=== PATIENT | male | born 1960 | race African-American/Black ===

== ENCOUNTER 2017-08-18 23:48 | Inpatient (IN) ==
[2017-08-19 00:50] LABS: Basophils % 0.3 %; Eosinophils % 0.1 %; Immature Granulocytes % 0.3 % (0-4); Lymphocytes # 0.7 K/mcL (0.6-4.6); Lymphocytes % 8.9 %; Mean Corpuscular HGB Conc 33.3 g/dL (31.6-35.5); Mean Corpuscular Hemoglobin 30.1 pg (28.0-33.3); Mean Corpuscular Volume 90.4 fL (83.0-100.0); Mean Platelet Volume 10.1 fL (9.4-12.4); Monocytes # 0.8 K/mcL (0.0-1.3); Neutrophils # 6.1 K/mcL (1.6-8.9); Platelet Count 245 K/mcL (140-400); Red Blood Count 4.98 M/mcL (4.19-5.50); Red Cell Distribution Width 14.6 % (11.5-14.5); Segmented Neutrophils % 79.4 %
[2017-08-19 00:56] LABS: INR 1.2; Prothrombin Time 12.6 Seconds (9.4-12.1)
[2017-08-19 00:58] LABS: Activated Partial Thrombo Time 35.9 Seconds (26.0-36.0)
[2017-08-19 01:04] LABS: BUN/Creatinine Ratio 12 (6-26); Blood Urea Nitrogen 14 mg/dL (8-26); Calcium 9.9 mg/dL (8.6-10.8); Carbon Dioxide 24 mEq/L (19-29); Chloride 99 mEq/L (98-109); Glucose 94 mg/dL (70-99); Osmolality,Calculated 280 (280-300); Potassium 3.6 mEq/L (3.5-4.5); Sodium 135 mEq/L (136-145); eGFR For African Americans > 60 (> 60); eGFR For Non-African Americans > 60 (> 60)
--- NOTE | 2017-08-19 01:17 | Emergency Department Note ---
Disposition Clinical Impression: Shortness of breath Sepsis Qualifiers: Sepsis type: sepsis due to unspecified organism Qualified Code(s): A41.9 - Sepsis, unspecified organism Fever Qualifiers: Fever type: unspecified Qualified Code(s): R50.9 - Fever, unspecified Disposition: Admitted As Inpatient Condition: Fair Time of Disposition: 04:08 SOB HPI - General Chief Complaint: ED Shortness of Breath/Dyspnea Stated Complaint: shortness of breath, cough Source: patient, EMS Mode of arrival: EMS Limitations: no limitations Nursing Notes Reviewed: Yes Vital Signs Reviewed: Yes - History of Present Illness 57-year-old male with history of lung cancer presents to the emergency department complaining of shortness of breath as well as a painful cough and chest pain. Patient states the pain is been going on for 2 or 3 days as well as a cough but is worsened today and this is why he came in. He says the chest pain is all throughout his chest worsened with takes big deep breaths or coughing. There is center chest and nonradiating. He says it is 6 out of 10. He last had chemotherapy in March and that lung nodule was currently in remission he just got told recently last week that he had a new nodule in his right upper lung is currently being followed by oncology. He has had a purulent cough. He has had no fevers. But this cough and chest pain has worsened. There are some sick contacts at his house. Patient otherwise having no complaints including nausea, vomiting, headache, blurry vision, back pain, neck pain, abdominal pain, pain or tingling in the arms or legs, pain with urination, change in bowel movements, generalized weakness. - Related Data Previous Rx's Medication Instructions Recorded Azithromycin [Azithromycin 6-Tab 250 mg PO DAILY 5 Days tab 02/23/16 Pack] Benzonatate [Zonatuss] 150 mg PO TID PRN #20 capsule 02/23/16 Fluticasone Propionate Nasal 2 spray NS DAILY 7 Days bottle 02/23/16 [Flonase] Allergies Allergy/AdvReac Type Severity Reaction Status Date / Time dextromethorphan Allergy Dizziness Verified 08/18/17 23:49 [From Dimetapp Cold-Congestion] Review of Systems: 10 point review of systems done and negative unless otherwise stated in history of present illness. All systems ED: reviewed and negative except as stated. Review of Systems: As Per HPI Past Medical History - Past Medical History Attestation: Yes The following information was validated with the patient. Medical history: Reports: cancer, hypertension Surgical history: Reports: no surgical history Psychiatric history: Reports: no psych history - Social History Smoking Status: Former smoker Smokeless Tobacco Status: No Alcohol use: Reports: none Drug use: Reports: none Physical Exam - General Limitations: no limitations General appearance: alert, in no apparent distress - Head Head exam: atraumatic, normocephalic, normal inspection - Eye Eye exam: Present: normal appearance, PERRL, EOMI - ENT ENT exam: normal exam, normal oropharynx, mucous membranes moist - Neck Neck exam: Present: normal inspection, full ROM, trachea midline - Chest Chest inspection: Present: normal inspection, symmetric chest wall rise - Respiratory Respiratory exam: Present: wheezes. Absent: respiratory distress - Expanded Respiratory Exam Location: rales: Left, Right, Upper, Lower - Cardiovascular Cardiovascular exam: Present: regular rate, normal rhythm, normal heart sounds - Abdominal Exam Abdominal exam: Present: soft, Non-Tender, normal bowel sounds. Absent: tenderness, distention, guarding, rebound, rigidity - Extremities Exam Extremities exam: Present: normal inspection, full ROM. Absent: tenderness, pedal edema - Back Exam Back exam: Present: normal inspection, full ROM. Absent: tenderness, CVA tenderness (R), CVA tenderness (L) - Neurological Exam Neurological exam: Present: alert, oriented X3 - Skin Skin exam: Present: warm, dry, intact, normal color Course Course Narrative: 57-year-old male presented to emergency department complaining of shortness of breath and cough. Patient does have history of lung cancer. We will get CTA of his chest for possible pulmonary embolism or other lung pathology including pneumonia. Patient with fever when he came here. Will also get basic labs including CBC, CMP, lactate, troponin and EKG, blood cultures, timed lactate.. Disposition pending results. Vital Signs Temperature 101.3 F H 08/18/17 23:51 Pulse Rate 111 08/18/17 23:51 Respiratory Rate 16 08/18/17 23:51 Blood Pressure 152/98 08/18/17 23:51 O2 Sat by Pulse Oximetry 92 08/18/17 23:51 Temperature 99.2 F 08/19/17 06:02 Pulse Rate 101 08/19/17 06:02 Respiratory Rate 16 08/19/17 06:02 Blood Pressure 160/97 08/19/17 06:02 O2 Sat by Pulse Oximetry 97 08/19/17 06:02 Oxygen Delivery Oxygen Delivery Nasal Cannula Shortness of Breath/Dyspnea - MDM Narrative Medical decision making narrative: D7-year-old male presenting to the emergency department complaining of shortness of breath as well as fever. Patient did have a fever upon arrival and was tachycardic. Did do an EKG which had no acute findings of tachycardia. Did do CT angios of his chest due to the history of lung cancer with worry for pulmonary embolus and there is no pulmonary lives with a did find a spot in his right upper lobe which is what he is currently being worked up for for possibly new lung cancer. Labs were all normal blood cultures are still pending urinalysis is still pending. Did start patient on Levaquin, Zosyn, vancomycin due to the history of immunosuppression as well as the lung cancer. Did also get flu sausage this is still pending at the same time. Did give patient a total of 8 mg of morphine for pain control this did help. Also gave him the 30 mL/kg of IV fluid bolus. He tolerated this well. Spoke with the hospitalist, Dr. Rothman who agreed to admit the patient to their service. Patient is now admitted to their service in stable condition. Chest CTA 08/19/17 00:16 IMPRESSION: No evidence of pulmonary embolus. Bullous emphysematous changes within the upper lobes bilaterally. Left adrenal mass. Pleural thickening within the right lung apex with adjacent erosions and cortical irregularity involving the right 3rd through 5th ribs. Combination of findings is concerning for malignancy/metastatic disease. D/ / Stefan Pierce MD / Stefan Pierce MD Interpreting Provider: Stefan Pierce MD - Medical Records Medical records reviewed: Yes I reviewed the patient's medical records. - Lab Data Lab results reviewed: Yes I reviewed the patient's lab results. Result diagrams: 08/19/17 00:38 08/19/17 00:38 Lab Results 08/19/17 08/19/17 08/19/17 Range/Units 00:38 00:38 00:38 WBC 7.6 (4.3-11.1) K/mcL RBC 4.98 (4.19-5.50) M/mcL Hgb 15.0 (12.9-16.9) g/dL Hct 45.0 (37.5-50.1) % MCV 90.4 (83.0-100.0) fL MCH 30.1 (28.0-33.3) pg MCHC 33.3 (31.6-35.5) g/dL RDW 14.6 H (11.5-14.5) % Plt Count 245 (140-400) K/mcL MPV 10.1 (9.4-12.4) fL Immature Gran % 0.3 (0-4) % Seg Neutrophils % 79.4 % Lymphocytes % 8.9 % Monocytes % 11.0 % Eosinophils % 0.1 % Basophils % 0.3 % Neutrophils # 6.1 (1.6-8.9) K/mcL Lymphocytes # 0.7 (0.6-4.6) K/mcL Monocytes # 0.8 (0.0-1.3) K/mcL Eosinophils # 0.0 (0.0-0.6) K/mcL Basophils # 0.0 (0.0-0.2) K/mcL PT (9.4-12.1) Seconds INR APTT (26.0-36.0) Seconds Sodium 135 L (136-145) mEq/L Potassium 3.6 (3.5-4.5) mEq/L Chloride 99 (98-109) mEq/L Carbon Dioxide 24 (19-29) mEq/L BUN 14 (8-26) mg/dL Creatinine 1.13 (0.72-1.25) mg/dL Est GFR ( Amer) > 60 (> 60) Est GFR (Non-Af Amer) > 60 (> 60) BUN/Creatinine Ratio 12 (6-26) Glucose 94 (70-99) mg/dL Calculated Osmolality 280 (280-300) Lactic Acid 1.2 (0.5-2.2) mmol/L Calcium 9.9 (8.6-10.8) mg/dL Troponin I (0-0.03) ng/mL B-Natriuretic Peptide (0-100) pg/mL Urine Color (Yellow) Urine Clarity (Clear) Urine pH (5.0-8.0) pH Units Ur Specific [place] (1.010-1.025) Urine Protein (Neg-Trace) mg/dL Urine Glucose (UA) (Normal) mg/dL Urine Ketones (Negative) mg/dL Urine Blood (Negative) Urine Nitrite (Negative) Urine Bilirubin (Negative) Urine Urobilinogen (Normal) mg/dL Ur Leukocyte Esterase (Negative) Urine Microscopic RBC (0-3) per hpf Urine Microscopic WBC (0-3) per hpf Ur Squamous Epith Cells (None-Few) per lpf Urine Bacteria (None-Few) per hpf Hyaline Casts (None-Few) per lpf Ur Culture Indicated? (NO) 08/19/17 08/19/17 08/19/17 Range/Units 00:38 00:38 00:38 WBC (4.3-11.1) K/mcL RBC (4.19-5.50) M/mcL Hgb (12.9-16.9) g/dL Hct (37.5-50.1) % MCV (83.0-100.0) fL MCH (28.0-33.3) pg MCHC (31.6-35.5) g/dL RDW (11.5-14.5) % Plt Count (140-400) K/mcL MPV (9.4-12.4) fL Immature Gran % (0-4) % Seg Neutrophils % % Lymphocytes % % Monocytes % % Eosinophils % % Basophils % % Neutrophils # (1.6-8.9) K/mcL Lymphocytes # (0.6-4.6) K/mcL Monocytes # (0.0-1.3) K/mcL Eosinophils # (0.0-0.6) K/mcL Basophils # (0.0-0.2) K/mcL PT 12.6 H (9.4-12.1) Seconds INR 1.2 APTT 35.9 (26.0-36.0) Seconds Sodium (136-145) mEq/L Potassium (3.5-4.5) mEq/L Chloride (98-109) mEq/L Carbon Dioxide (19-29) mEq/L BUN (8-26) mg/dL Creatinine (0.72-1.25) mg/dL Est GFR ( Amer) (> 60) Est GFR (Non-Af Amer) (> 60) BUN/Creatinine Ratio (6-26) Glucose (70-99) mg/dL Calculated Osmolality (280-300) Lactic Acid (0.5-2.2) mmol/L Calcium (8.6-10.8) mg/dL Troponin I 0.01 (0-0.03) ng/mL B-Natriuretic Peptide 77 (0-100) pg/mL Urine Color (Yellow) Urine Clarity (Clear) Urine pH (5.0-8.0) pH Units Ur Specific [place] (1.010-1.025) Urine Protein (Neg-Trace) mg/dL Urine Glucose (UA) (Normal) mg/dL Urine Ketones (Negative) mg/dL Urine Blood (Negative) Urine Nitrite (Negative) Urine Bilirubin (Negative) Urine Urobilinogen (Normal) mg/dL Ur Leukocyte Esterase (Negative) Urine Microscopic RBC (0-3) per hpf Urine Microscopic WBC (0-3) per hpf Ur Squamous Epith Cells (None-Few) per lpf Urine Bacteria (None-Few) per hpf Hyaline Casts (None-Few) per lpf Ur Culture Indicated? (NO) 08/19/17 Range/Units 03:55 WBC (4.3-11.1) K/mcL RBC (4.19-5.50) M/mcL Hgb (12.9-16.9) g/dL Hct (37.5-50.1) % MCV (83.0-100.0) fL MCH (28.0-33.3) pg MCHC (31.6-35.5) g/dL RDW (11.5-14.5) % Plt Count (140-400) K/mcL MPV (9.4-12.4) fL Immature Gran % (0-4) % Seg Neutrophils % % Lymphocytes % % Monocytes % % Eosinophils % % Basophils % % Neutrophils # (1.6-8.9) K/mcL Lymphocytes # (0.6-4.6) K/mcL Monocytes # (0.0-1.3) K/mcL Eosinophils # (0.0-0.6) K/mcL Basophils # (0.0-0.2) K/mcL PT (9.4-12.1) Seconds INR APTT (26.0-36.0) Seconds Sodium (136-145) mEq/L Potassium (3.5-4.5) mEq/L Chloride (98-109) mEq/L Carbon Dioxide (19-29) mEq/L BUN (8-26) mg/dL Creatinine (0.72-1.25) mg/dL Est GFR ( Amer) (> 60) Est GFR (Non-Af Amer) (> 60) BUN/Creatinine Ratio (6-26) Glucose (70-99) mg/dL Calculated Osmolality (280-300) Lactic Acid (0.5-2.2) mmol/L Calcium (8.6-10.8) mg/dL Troponin I (0-0.03) ng/mL B-Natriuretic Peptide (0-100) pg/mL Urine Color Yellow (Yellow) Urine Clarity Clear (Clear) Urine pH 6.0 (5.0-8.0) pH Units Ur Specific [place] > 1.030 H (1.010-1.025) Urine Protein 30 H (Neg-Trace) mg/dL Urine Glucose (UA) Normal (Normal) mg/dL Urine Ketones Negative (Negative) mg/dL Urine Blood Large H (Negative) Urine Nitrite Negative (Negative) Urine Bilirubin Negative (Negative) Urine Urobilinogen Normal (Normal) mg/dL Ur Leukocyte Esterase Negative (Negative) Urine Microscopic RBC 5-15 H (0-3) per hpf Urine Microscopic WBC 0-3 (0-3) per hpf Ur Squamous Epith Cells Moderate H (None-Few) per lpf Urine Bacteria None Seen (None-Few) per hpf Hyaline Casts None Seen (None-Few) per lpf Ur Culture Indicated? NO (NO) - Radiology Data Radiology results reviewed: Yes I reviewed the patient's radiology results. - EKG Data EKG attestation: Yes I reviewed and interpreted this EKG. EKG results narrative: EKG done at 2353 review myself and the attending shows sinus tachycardia at a rate of 113, OR interval 163, QRS 95, QTC 373 with a normal axis. There is no acute ST changes, no acute T-wave abnormalities, no signs of any heart strain or heart block, no signs of hypertrophy, no signs of WPW/Brugada syndrome. This is an unchanged EKG based on old one done 11/01/12. Attestation Statement - Attestation Attestation: I examined this patient and my medical decision-making was reviewed with the Resident Physician. I agree with the documented findings, disposition and treatment plan as described except to the extent set forth below. Possible worsening of lung CA. Dyspnea in the setting of lung CA. Will admit to hospital for further evaluation. No evidence of pulmonary embolus embolism at this time.
[2017-08-19] MEDS ORDERED: *HR* Morphine 2 MG/ML SYRINGE IVP ONE ×2 (01:23→04:03)
[2017-08-19] MEDS ORDERED: 0.9 % Sodium Chloride 1,000 ML IVC ONE ×2 (02:55)
[2017-08-19] MEDS ORDERED: Levofloxacin 750 MG/150 ML 750 MG/150 ML BAG IVPB ONE ×2 (03:25→07:00)
[2017-08-19] MEDS ORDERED: Piperacillin/Tazobactam 3.375 GM in Water for inj. (sterile) 20 ML IVP ONE (03:25)
[2017-08-19] MEDS ORDERED: Vancomycin 1,000 MG in D5% in Water 250 ML IVPB ONE ×2 (03:25→07:00)
[2017-08-19 04:16] LABS: Bilirubin,Urine Negative (Negative); Blood,Urine Large (Negative); Clarity,Urine Clear (Clear); Color,Urine Yellow (Yellow); Glucose,Urine (UA) Normal (Normal); Ketones,Urine Negative (Negative); Leukocyte Esterase,Urine Negative (Negative); Nitrite,Urine Negative (Negative); Protein,Urine 30 mg/dL (Neg-Trace); Specific Gravity,Urine > 1.030 (1.010-1.025); Urobilinogen,Urine Normal (Normal)
[2017-08-19] MEDS ORDERED: Acetaminophen 325 MG TABLET PO PRN (04:17)
[2017-08-19] MEDS ORDERED: *HR* Promethazine 25 MG/ML VIAL IVP PRN (04:17)
[2017-08-19] MEDS ORDERED: Naloxone 0.4 MG/ML INJ IVP PRN (04:17)
[2017-08-19] MEDS ORDERED: Ondansetron 4 MG/2 ML VIAL IVP PRN (04:17)
[2017-08-19 04:19] LABS: Bacteria,Urine None Seen per hpf (None-Few); Hyaline Casts,Urine None Seen per lpf (None-Few); Squamous Epithelial Cell,Urine Moderate per lpf (None-Few); WBC,Urine 0-3 per hpf (0-3)
[2017-08-19] MEDS ORDERED: 0.9 % Sodium Chloride 1,000 ML IVC SCH (04:30)
--- NOTE | 2017-08-19 05:38 | Internal Med History&Physical ---
Date of Encounter: 08/19/17 Time of Encounter: 04:00 Assessment and Plan (1) SIRS (systemic inflammatory response syndrome) Current visit: Yes Status: Acute He does meet SIRS criteria with sinus tachycardia and source of inf as bronchitis will admit the pt into Tele blood cx were drawn in the ER (2) Acute respiratory distress Current visit: Yes Status: Acute Triggered by bronchitis will start him on empirical abx Cefepime + Levaquin will do sputum cx, strep pna, legionella, resp viral panel and myscoplasma titer IV hydration Duoneb O2 PRN started him on high dose IV steroids (3) Bronchitis Current visit: Yes Status: Acute mostly bacterial on abx (4) Metastatic lung carcinoma Current visit: Yes Status: Acute He was following at [facility] now he would like to change it to our [place] [facility] On[facility] will consult Heme Onc in AM IV analgesics for pain Qualifiers: Laterality: right Qualified Code(s): C78.01 - Secondary malignant neoplasm of right lung (5) COPD with acute exacerbation Current visit: Yes Status: Acute on high dose IV steroids (6) Tobacco dependence Current visit: Yes Status: Acute quit smoking 2 months ago Internal Medicine - H&P: HPI Chief complaint: Shortness of breath Admitted From: Emergency Dept Plans for Post Hospital Care: Home History of present illness: Mr. Lyons is a 57 year old male with known h/o tobacoo dependence, and metastatic lung cancer diagnosed in 2015, follows at [facility] who had chemo and radiotherapy now he presented to ER c/o form last last 2-3 days he has been having fever, chills, generalized body aches, cough with yellowish expectoration and CP. He last had chemotherapy in March and that lung nodule was currently in remission he just got told recently last week that he had a new nodule in his right upper lung. His CTA of chest did not show any PE, however he does have pleural thickening with in the Rt lung apex with adjacent erosions and cortical irregularity involving the Right 3rd through 5th ribs. Past Med Surg Social Fam HX - Past Medical History Medical history: cancer, hypertension Psychiatric history: no psych history - Past Surgical History Surgical History: no surgical history - Social History Smoking Status: Former smoker Smokeless Tobacco Status: No Alcohol use: none Drug use: none - Family History Mother Hx Family Cancer: Yes (possible lung cancer) - Additional Family History Additional family history: Mother with cancer.. possible lung cancer. Internal Medicine - H&P: Meds Azithromycin [Azithromycin 6-Tab Pack] 250 mg PO DAILY 5 Days tab 02/23/16 [Rx] Benzonatate [Zonatuss] 150 mg PO TID PRN #20 capsule 02/23/16 [Rx] Fluticasone Propionate Nasal [Flonase] 2 spray NS DAILY 7 Days bottle 02/23/16 [Rx] 3 Allergy/AdvReac Type Severity Reaction Status Date / Time dextromethorphan Allergy Dizziness Verified 08/18/17 23:49 [From Dimetapp Cold-Congestion] All Systems PM: A 10-system review of systems was performed and is negative for pertinent findings except as documented above in the HPI. Review of systems: All the systems are reviewed everything is benign except the systems and symptoms I mentioned in the history of present illness - Constitutional Vitals: Temp Pulse Resp BP Pulse Ox 101.3 F H 111 16 138/79 99 08/18/17 23:51 08/19/17 03:25 08/19/17 05:11 08/19/17 05:11 08/19/17 03:25 General appearance: Present: A&O X 3, no acute distress, answers questions appropriately - Head Head exam: Present: atraumatic, normal inspection - Neck Neck exam general surgery: Present: supple - Respiratory Respiratory exam: Present: decreased breath sounds, wheezes (moderate to severe wheezing). Absent: rales, respiratory distress, rhonchi - Cardiovascular Cardiovascular exam: Present: +S1, +S2, tachycardia. Absent: RRR - GI/Abdominal GI/Abdominal exam: Present: normal bowel sounds, soft. Absent: rebound, rigid, tenderness - Extremities Exam Extremities exam: Absent: calf tenderness, tenderness, warm - Back Exam Back exam: Absent: CVA tenderness (L), CVA tenderness (R) - Neurological Exam Neurological exam: Present: alert, oriented X3 - Psychiatric Psychiatric exam: Present: depressed - Skin Skin exam: Absent: rash Internal Med - H&P Results - Labs CBC & Chem 7: 08/19/17 00:38 08/19/17 00:38
[2017-08-19] MEDS: *HR* HYDROmorphone (PF) 1 MG/ML SYRINGE IVP PRN ×4 (06:34→22:59)
[2017-08-19] MEDS: Cefepime HCl 1,000 MG in Water for inj. (sterile) 10 ML IVP SCH ×2 (06:36→17:05)
[2017-08-19] MEDS: MethylPREDNISolone 40 MG/ML VIAL IVP SCH ×4 (06:36→22:58)
[2017-08-19] MEDS: *HR* Enoxaparin 40 MG/0.4 ML SYRINGE SQ SCH (06:37)
[2017-08-19] MEDS: Ipratropium/Albuterol Neb 3 ML IH SCH ×5 (07:54→23:11)
[2017-08-19] MEDS: *HR* HYDROcodone/Acet 5/325 mg TABLET PO PRN ×2 (09:33→14:54)
--- NOTE | 2017-08-19 10:18 | Internal Med Progress Note ---
<Evelyn Sweeney - Last Filed: 08/19/17 15:06> Date of Encounter: 08/19/17 Time of Encounter: 10:16 - Assessment and plan (1) Sepsis Current Visit: Yes Status: Acute Assessment and plan: Fever and tachycardia on admission, source influenza tamiflu Cefepime and Levaquin Blood cultures pending Sputum culture and mycoplasma titers pending IV fluids DuoNeb nebs Supplemental oxygen when necessary Solu-Medrol --Influenza A positive Qualifiers: Sepsis type: sepsis due to unspecified organism Qualified Code(s): A41.9 - Sepsis, unspecified organism (2) Influenza A virus present Current Visit: Yes Status: Acute (3) Bronchitis Current Visit: Yes Status: Acute (4) Acute respiratory distress Current Visit: Yes Status: Acute (5) COPD with acute exacerbation Current Visit: Yes Status: Acute (6) Metastatic lung carcinoma Current Visit: Yes Status: Acute Assessment and plan: Previously patient of [facility], would like to change to [facility] onc Spoke to [facility], will refer on discharge Qualifiers: Laterality: right Qualified Code(s): C78.01 - Secondary malignant neoplasm of right lung - Subjective Interval history: Patient states that he is feeling a little bit better today. He does not use oxygen at home and is currently using 2 L. He states that he has felt short of breath since his initial cancer diagnosis. His coughing is unchanged from yesterday. - Constitutional Vitals: Temp Pulse Resp BP Pulse Ox 98.9 F 110 18 138/99 96 08/19/17 08:13 08/19/17 09:25 08/19/17 08:13 08/19/17 08:13 08/19/17 09:19 General appearance: Present: A&O X 3, no acute distress, answers questions appropriately - Head Head exam: Present: atraumatic, normocephalic - Eye Eye exam: Present: PERRL, conjuntiva pink, sclera anicteric Pupils: Present: PERRL - Neck Neck exam general surgery: Present: supple, trachea midline - Respiratory Respiratory exam: Present: rhonchi (Bilateral bases), wheezes (Throughout) - Cardiovascular Cardiovascular exam: Present: RRR, +S1, +S2. Absent: diastolic murmur, gallop, rubs, systolic murmur - GI/Abdominal GI/Abdominal exam: Present: normal bowel sounds, soft, no peritoneal signs. Absent: distended, tenderness - Extremities Exam Extremities exam: Present: warm. Absent: pedal edema, tenderness Additional comments: Posterior tibial pulses palpable and symmetric; digital clubbing - Neurological Exam Neurological exam: Present: CN II-XII intact, oriented X3, no focal deficits. Absent: facial droop, speech deficit - Skin Skin exam: Present: dry, intact Internal Medicine: Result - Labs CBC & Chem 7: 08/19/17 00:38 08/19/17 00:38 - ABG Interpretation ABG results: PT/INR, D-dimer PT 12.6 Seconds (9.4-12.1) H 08/19/17 00:38 Consult Discharge Plan - Plan Referrals: Carlos Barajas MD [Partnered Physician] - (sent web request on 08-19-17 2537) NONE,PCP [Primary Care Provider] - [facility] [Provider Group] <Benjamin Cuevas - Last Filed: 08/19/17 15:47> Date of Encounter: 08/19/17 - Assessment and plan (1) Sepsis Current Visit: Yes Status: Acute Qualifiers: Sepsis type: sepsis due to unspecified organism Qualified Code(s): A41.9 - Sepsis, unspecified organism (2) Influenza due to influenza virus, type A, human Current Visit: Yes Status: Acute - Constitutional Vitals: Temp Pulse Resp BP Pulse Ox 97.9 F 79 16 145/92 96 08/19/17 11:20 08/19/17 12:21 08/19/17 11:40 08/19/17 11:20 08/19/17 11:40 Internal Medicine: Result - Labs CBC & Chem 7: 08/19/17 00:38 08/19/17 00:38 - ABG Interpretation ABG results: PT/INR, D-dimer PT 12.6 Seconds (9.4-12.1) H 08/19/17 00:38 - Attending Attestation I examined this patient and my medical decision-making was reviewed with the Resident Physician on 08/19/17. I agree with the documented findings, disposition and treatment plan as described except to the extent set forth below. Mr Lyons was admitted earlier today with sepsis due to pulmonary source. Has positive influenza A. He continues to be congested and dyspneic. Coughing. Plan Tamiflu started Isolation Agree with plan as above.
[2017-08-19 12:59] LABS: Adenovirus Not Detected (Not Detect); Bordetella Pertussis Not Detected (Not Detect); Chlamydophila pneumoniae Not Detected (Not Detect); Coronavirus 229E Not Detected (Not Detect); Coronavirus HKU1 Not Detected (Not Detect); Coronavirus NL63 Not Detected (Not Detect); Coronavirus OC43 Not Detected (Not Detect); Human Metapneumovirus Not Detected (Not Detect); Human Rhinovirus/Enterovirus Not Detected (Not Detect); Influenza A Subtype 2009 H1 Not Detected (Not Detect); Influenza A Untypeable Not Detected (Not Detect); Influenza B Not Detected (Not Detect); Mycoplasma pneumoniae Not Detected (Not Detect); Parainfluenza Virus 1 Not Detected (Not Detect); Parainfluenza Virus 2 Not Detected (Not Detect); Parainfluenza Virus 3 Not Detected (Not Detect); Parainfluenza Virus 4 Not Detected (Not Detect); Respiratory Syncytial Virus Not Detected (Not Detect)
[2017-08-19] MEDS: *HR* OxyCODONE Immed Rel 5 MG TABLET PO SCH ×2 (17:06→21:08)
[2017-08-19] MEDS: *HR* Morphine Sulfate SR (12 HR) 30 MG TABLET.ER PO SCH (19:47)
[2017-08-20] MEDS: Ipratropium/Albuterol Neb 3 ML IH SCH ×3 (04:04→10:48)
[2017-08-20] MEDS: *HR* HYDROmorphone (PF) 1 MG/ML SYRINGE IVP PRN (04:40)
[2017-08-20] MEDS: Cefepime HCl 1,000 MG in Water for inj. (sterile) 10 ML IVP SCH (04:40)
[2017-08-20] MEDS: *HR* Enoxaparin 40 MG/0.4 ML SYRINGE SQ SCH (04:40)
[2017-08-20] MEDS ORDERED: Levofloxacin 500 MG/100 ML 500 MG/100 ML BAG IVPB SCH (05:00)
[2017-08-20 05:36] LABS: Hematocrit 39.6 % (37.5-50.1); Immature Granulocytes % 0.3 % (0-4); Lymphocytes # 0.8 K/mcL (0.6-4.6); Lymphocytes % 10.6 %; Mean Corpuscular HGB Conc 32.3 g/dL (31.6-35.5); Mean Corpuscular Hemoglobin 29.5 pg (28.0-33.3); Mean Corpuscular Volume 91.2 fL (83.0-100.0); Mean Platelet Volume 9.8 fL (9.4-12.4); Monocytes # 0.5 K/mcL (0.0-1.3); Monocytes % 7.1 %; Platelet Count 218 K/mcL (140-400); Red Blood Count 4.34 M/mcL (4.19-5.50); Red Cell Distribution Width 14.3 % (11.5-14.5)
[2017-08-20 05:37] LABS: BUN/Creatinine Ratio 17 (6-26); Blood Urea Nitrogen 14 mg/dL (8-26); Calcium 9.3 mg/dL (8.6-10.8); Carbon Dioxide 23 mEq/L (19-29); Chloride 104 mEq/L (98-109); Glucose 162 mg/dL (70-99); Osmolality,Calculated 286 (280-300); Potassium 4.3 mEq/L (3.5-4.5); Sodium 136 mEq/L (136-145); eGFR For African Americans > 60 (> 60); eGFR For Non-African Americans > 60 (> 60)
[2017-08-20] MEDS: MethylPREDNISolone 40 MG/ML VIAL IVP SCH (05:43)
[2017-08-20 05:44] LABS: Hemoglobin 12.8 g/dL (12.9-16.9)
[2017-08-20 07:45] VITALS: BP 156/110
[2017-08-20] MEDS: *HR* Morphine Sulfate SR (12 HR) 30 MG TABLET.ER PO SCH (08:03)
[2017-08-20] MEDS: *HR* OxyCODONE Immed Rel 5 MG TABLET PO SCH (08:03)
[2017-08-20] MEDS ORDERED: *HR* Labetalol 20 MG/4 ML SYRINGE IVP PRN (08:20)
--- NOTE | 2017-08-20 08:56 | Discharge Summary ---
<Evelyn Sweeney - Last Filed: 08/20/17 12:46> Date of Encounter: 08/20/17 Time of Encounter: 08:53 - Discharge Diagnosis (1) Sepsis Priority: Primary Status: Acute Qualifiers: Sepsis type: sepsis due to unspecified organism Qualified Code(s): A41.9 - Sepsis, unspecified organism (2) Influenza A virus present Priority: Primary Status: Acute (3) Bronchitis Priority: Secondary Status: Acute (4) Acute respiratory distress Priority: Secondary Status: Acute (5) COPD with acute exacerbation Priority: Secondary Status: Acute (6) Metastatic lung carcinoma Priority: Secondary Status: Acute Qualifiers: Laterality: right Qualified Code(s): C78.01 - Secondary malignant neoplasm of right lung - Discharge Medications Prescriptions: Oseltamivir [Tamiflu] 75 mg PO BID #7 capsule Home Medications: Gabapentin [Neurontin] 300 mg PO DAILY 08/19/17 [History] Morphine Sulfate [Arymo ER] 30 mg PO BID 08/19/17 [History] Oxycodone HCl 10 mg PO QID 08/19/17 [History] hydroCHLOROthiazide [Hydrochlorothiazide] 25 mg PO DAILY 08/19/17 [History] Oseltamivir [Tamiflu] 75 mg PO BID #7 capsule 08/20/17 [Rx] Allergies/Adverse Reactions: 3 Allergy/AdvReac Type Severity Reaction Status Date / Time dextromethorphan Allergy Dizziness Verified 08/18/17 23:49 [From Dimetapp Cold-Congestion] Date of admission: 08/19/17 04:17 Primary care physician: PCP NONE Discharging clinician: Evelyn Sweeney Anticipated date of discharge: 08/20/17 - Patient Status Disposition: Home, Self-Care Condition: Good Functional capacity at discharge: independent ambulation Overall status at discharge: patient is progressing back to baseline - Discharge Instructions Instructions: Oseltamivir (By mouth) Follow Up With: [facility] [Provider Group] - 09/09/17 3:00 pm Carlos Barajas MD [Partnered Physician] - (sent web request on 08-19-17 [id number]) NONE,PCP [Primary Care Provider] - - Diet and Activity Diet: advance to your usual diet Interval History: Patient states that he feels better today. He is asking for discharge. Hospital course: Mr. Lyons is a 57 year old male admitted with a three-day history of fever, chills, generalized body aches, and productive cough with yellowish mucus, and chest pain found to be influenza A positive. He was sepsis due to fever and tachycardia on admission with a source of influenza. He was initially started on cefepime and Levaquin due to the source being unknown. One influenza swab came back positive he was started on Tamiflu and the antibiotics were stopped. On the day of discharge, he is feeling much better and is asking to go home. He will be discharged with the remainder of the treatment of Tamiflu. He is also being asked to be referred to [facility]. He previously followed with the [facility]. - Time Spent with Patient Total time spent providing and/or coordinating discharge services: - Constitutional Vitals: Temp Pulse Resp BP Pulse Ox 97.5 F L 87 16 156/110 92 08/20/17 07:43 08/20/17 07:43 08/20/17 08:25 08/20/17 07:43 08/20/17 08:25 General appearance: Present: A&O X 3, no acute distress, answers questions appropriately - Head Head exam: Present: atraumatic, normocephalic - Eye Eye exam: Present: PERRL, conjuntiva pink, sclera anicteric Pupils: Present: PERRL - Neck Neck exam general surgery: Present: supple, trachea midline. Absent: lymphadenopathy - Respiratory Respiratory exam: Present: decreased breath sounds. Absent: accessory muscle use, rales, rhonchi, wheezes - Cardiovascular Cardiovascular exam: Present: RRR, +S1, +S2. Absent: diastolic murmur, gallop, rubs, systolic murmur - GI/Abdominal GI/Abdominal exam: Present: normal bowel sounds, soft, no peritoneal signs. Absent: distended, tenderness - Extremities Exam Extremities exam: Present: warm. Absent: pedal edema, tenderness Additional comments: Posterior tibial pulses palpable and symmetric; digital clubbing - Neurological Exam Neurological exam: Present: CN II-XII intact, oriented X3, no focal deficits. Absent: pronater drift, facial droop, speech deficit - Skin Skin exam: Present: dry, intact <Andrea Baldwin - Last Filed: 08/20/17 16:59> Date of Encounter: 08/20/17 Date of admission: 08/19/17 04:17 Primary care physician: PCP NONE Hospital course: Mr. Lyons is a 57 year old male - Time Spent with Patient Total time spent providing and/or coordinating discharge services: - Constitutional Vitals: Temp Pulse Resp BP Pulse Ox 97.5 F L 87 16 156/110 92 08/20/17 07:43 08/20/17 07:43 08/20/17 08:25 08/20/17 07:43 08/20/17 08:25 - Attending Attestation I conducted a face to face diagnostic evaluation of this patient and my medical decision-making was reviewed with the Resident Physician, Dr Evelyn Sweeney. I agree with the documented findings, disposition and treatment plan as described except to the extent set forth below: Patient was admitted for evaluation treatment of sepsis secondary to influenza A. He feels improved. I have advised complete smoking cessation. We will continue with Tamiflu and discharge home. Andrea Baldwin MD
[2017-08-20] MEDS ORDERED: hydroCHLOROthiazide 25 MG TABLET PO SCH (09:00)
[2017-08-20] MEDS ORDERED: Gabapentin 300 MG CAPSULE PO SCH (09:00)
--- NOTE | 2017-08-20 11:32 | Electrocardiograph Report ---
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
[2017-08-21 07:52] LABS: Mycoplasma pneumoniae IgG 1.86 U/L (<=0.09)
== END 2017-08-20 10:22 | disposition home or self-care (01) | DRG 720 ==
LOC: 2NNU 23:48 → EMEROO 23:48 → SUATTDRO 08-19 04:17 → 2NNU 08-19 05:21
PROVIDERS: ADMIT Internal Medicine Hematology & Oncology; ATTEND Internal Medicine

== ENCOUNTER 2019-05-17 16:36 | Observation (INO) ==
[2019-05-17] MEDS ORDERED: Ondansetron 4 MG/2 ML VIAL IVP ONE ×2 (16:50→18:55)
[2019-05-17] MEDS ORDERED: 0.9 % Sodium Chloride 1,000 ML IVC ONE (16:50)
[2019-05-17 17:29] LABS: Basophils % 0.2 %; Eosinophils % 0.2 %; Hematocrit 43.3 % (37.5-50.1); Hemoglobin 14.7 g/dL (12.9-16.9); Immature Granulocytes % 0.4 % (0-4); Lymphocytes # 2.3 K/mcL (0.6-4.6); Lymphocytes % 17.5 %; Mean Corpuscular HGB Conc 33.9 g/dL (31.6-35.5); Mean Corpuscular Volume 88.4 fL (83.0-100.0); Mean Platelet Volume 10.1 fL (9.4-12.4); Monocytes # 1.4 K/mcL (0.0-1.3); Monocytes % 11.1 %; Neutrophils # 9.1 K/mcL (1.6-8.9); Platelet Count 300 K/mcL (140-400); Red Cell Distribution Width 14.6 % (11.5-14.5); Segmented Neutrophils % 70.6 %; White Blood Count 12.9 K/mcL (4.3-11.1)
[2019-05-17 17:48] LABS: Potassium 3.3 mEq/L (3.5-5.1)
[2019-05-17] MEDS ORDERED: 0.9 % Sodium Chloride 500 ML IV ONE (18:28)
--- NOTE | 2019-05-17 19:17 | Emergency Department Note ---
Disposition Clinical Impression: Acute kidney injury, Gastroenteritis Disposition: Admitted As Inpatient Condition: Fair Referrals: NONE,PCP [Primary Care Provider] - Forms: ED Satisfaction Letter Time of Disposition: 21:00 General Adult HPI - General Chief complaint: ED Shortness of Breath/Dyspnea Stated complaint: WERO Time Seen by Provider: 05/17/19 16:37 Source: EMS Limitations: no limitations Nursing Notes Reviewed: Yes Vital Signs Reviewed: Yes - History of Present Illness HPI Narrative: This is a 58-year-old gentleman with a history of lung cancer who presents today with a complaint of nausea, vomiting, diarrhea since yesterday. The patient als o has had a slight non productive cough. He denies any fever or chills. Patient states he has not been able to keep anything down. There are no obvious aggravating or relieving factors. He describes symptoms as moderate. He denies dark or bloody stools. He denies any recent foreign travel. Onset (ago): day(s) Pain Scale: 2 - Related Data Previous Rx's Medication Instructions Recorded Menthol [Biofreeze] 118 ml TP TID PRN #118 gel..ml. 10/28/17 hydroCHLOROthiazide 25 mg PO DAILY #30 tablet 12/09/17 [Hydrochlorothiazide] Lidocaine/Prilocaine [Emla] 1 appl TP DAILY #30 gm 02/04/18 Mirtazapine [Remeron] 15 mg PO HS #30 tablet 11/20/18 Megestrol Acetate [Megace] 10 ml PO BID #600 udc 12/19/18 Benzonatate [Tessalon] 200 mg PO BID PRN 30 Days #60 01/21/19 capsule Gabapentin [Neurontin] 600 mg PO TID #90 tablet 01/21/19 Loratadine [Allergy Relief] 10 mg PO DAILY #30 tablet 01/21/19 Folic Acid 1 mg PO DAILY #30 tablet 01/22/19 Promethazine [Phenergan] 25 mg PO Q6HR PRN #30 tablet 02/03/19 Sildenafil Citrate 100 mg PO AD #30 tablet 02/03/19 Morphine Sulfate [Arymo ER] 30 mg PO BID 30 Days #60 tab.po.er 02/24/19 OxyCODONE Immed Rel [Roxicodone 10 10 mg PO Q6H PRN 30 Days #120 tab 02/24/19 MG] Allergies Allergy/AdvReac Type Severity Reaction Status Date / Time dextromethorphan Allergy Dizziness Verified 02/24/19 14:17 [From Dimetapp Cold-Congestion] All systems ED: reviewed and negative except as stated. Constitutional: Denies: fever, chills, weakness ENT ED: Reports: congestion Cardiovascular: Denies: chest pain, palpitations Respiratory: Reports: cough, dyspnea Gastrointestinal: Reports: abdominal pain, nausea, vomiting, diarrhea Genitourinary: Reports: as per HPI Musculoskeletal: Reports: as per HPI Integumentary: Reports: as per HPI Past Medical History - Past Medical History Medical history: Reports: cancer, hypertension Surgical history: Reports: no surgical history Psychiatric history: Reports: no psych history - Social History Smoking Status: Current some day smoker Smokeless Tobacco Status: No Alcohol use: Reports: occasionally Drug use: Reports: none Physical Exam - General Limitations: no limitations General appearance: alert - Head Head exam: atraumatic, normocephalic, normal inspection - Eye Eye exam: Present: normal appearance, PERRL, EOMI - Expanded Eye Exam Pupils: Left: reactive - ENT ENT exam: normal exam, normal oropharynx, mucous membranes moist - Expanded ENT Exam External ear exam: Present: normal external inspection Mouth exam: Present: normal external inspection Teeth exam: Present: normal inspection Throat exam: Present: normal inspection - Neck Neck exam: Present: normal inspection, full ROM, trachea midline - Chest Chest inspection: Present: normal inspection, symmetric chest wall rise - Respiratory Respiratory exam: Present: normal lung sounds bilaterally - Cardiovascular Cardiovascular exam: Present: regular rate, normal rhythm, normal heart sounds - Abdominal Exam Abdominal exam: Present: soft, Non-Tender. Absent: tenderness, distention, guarding, rebound, rigidity - Extremities Exam Extremities exam: Present: normal inspection, full ROM. Absent: tenderness, pedal edema - Expanded Upper Extremity Exam Shoulder exam: Present: normal inspection, full ROM Arm exam: Present: normal inspection, full ROM Elbow exam: Present: normal inspection, full ROM Forearm/Wrist exam: Present: normal inspection, full ROM Hand exam: Present: normal inspection, full ROM Vascular exam: Normal: capillary refill, radial pulse - Expanded Lower Extremity Exam Hip/Pelvis exam: Present: normal inspection, full ROM Upper leg exam: Present: normal inspection, full ROM Knee exam: Present: normal inspection, full ROM Lower leg exam: Present: normal inspection, full ROM Ankle exam: Present: normal inspection, full ROM Foot/toe exam: Present: normal inspection, full ROM Neurovascular/Tendon exam: Absent: motor deficit, sensory deficit, tendon deficit - Back Exam Back exam: Present: normal inspection, full ROM. Absent: tenderness - Neurological Exam Neurological exam: Present: alert, oriented X3, CN II-XII intact - Expanded Neurological Exam Patient oriented to: Present: person, place, time Coma Scale Eye Opening: Spontaneous Coma Scale Motor Response: Obeys Commands Coma Scale Verbal Response: Oriented Coma Scale Total: 15 - Psychiatric Psychiatric exam: Present: normal affect, normal mood - Skin Skin exam: Present: warm, dry, intact, normal color Course Vital Signs Temperature 98.3 F 05/17/19 16:41 Pulse Rate 100 05/17/19 16:41 Respiratory Rate 18 05/17/19 16:41 Blood Pressure 152/113 05/17/19 16:41 O2 Sat by Pulse Oximetry 100 05/17/19 16:41 Temperature 98.3 F 05/17/19 16:41 Pulse Rate 89 05/17/19 20:24 Respiratory Rate 28 05/17/19 20:24 Blood Pressure 129/91 05/17/19 20:24 O2 Sat by Pulse Oximetry 95 05/17/19 20:24 Oxygen Delivery Oxygen Delivery Room Air Medical Decision Making - [facility] Narrative Medical decision making narrative: Differential diagnosis includes gastroenteritis versus dehydration versus electrolyte abnormality versus pneumonia. 1804 Patient is doing slightly better. Labs reviewed We will continue to hydrate patient. 1815 Patient is still nauseated. Another dose of Zofran ordered. 1931 Patient is still vomiting. Will give Phenergan. 2114 Patient readmitted. Patient is doing better. Patient's care discussed with the hospitalist. We will admit for further management of his acute kidney injury. We will get a noncontrast CT scan of his chest given x-ray findings. Hospitalist would follow-up on that. - Lab Data Lab results reviewed: Yes I reviewed the patient's lab results. Result diagrams: 05/17/19 17:14 05/17/19 17:14 Lab Results 05/17/19 05/17/19 Range/Units 17:14 17:14 WBC 12.9 H (4.3-11.1) K/mcL RBC 4.90 (4.19-5.50) M/mcL Hgb 14.7 (12.9-16.9) g/dL Hct 43.3 (37.5-50.1) % MCV 88.4 (83.0-100.0) fL MCH 30.0 (28.0-33.3) pg MCHC 33.9 (31.6-35.5) g/dL RDW 14.6 H (11.5-14.5) % Plt Count 300 (140-400) K/mcL MPV 10.1 (9.4-12.4) fL Immature Gran % 0.4 (0-4) % Seg Neutrophils % 70.6 % Lymphocytes % 17.5 % Monocytes % 11.1 % Eosinophils % 0.2 % Basophils % 0.2 % Neutrophils # 9.1 H (1.6-8.9) K/mcL Lymphocytes # 2.3 (0.6-4.6) K/mcL Monocytes # 1.4 H (0.0-1.3) K/mcL Eosinophils # 0.0 (0.0-0.6) K/mcL Basophils # 0.0 (0.0-0.2) K/mcL Sodium 133 L (136-145) mEq/L Potassium 3.3 L (3.5-5.1) mEq/L Chloride 96 L (98-107) mEq/L Carbon Dioxide 23 (23-29) mEq/L BUN 28 H (6-20) mg/dL Creatinine 2.23 H (0.70-1.30) mg/dL Est GFR ( Amer) 37 L (> 60) Est GFR (Non-Af Amer) 30 L (> 60) BUN/Creatinine Ratio 13 (6-26) Glucose 131 H (70-105) mg/dL Calculated Osmolality 283 (280-300) Calcium 10.0 (8.6-10.3) mg/dL - Radiology Data Radiology results reviewed: Yes I reviewed the patient's radiology results.
[2019-05-17] MEDS ORDERED: *HR* Promethazine 25 MG/ML VIAL IVP ONE (20:18)
[2019-05-17] MEDS ORDERED: 0.9 % Sodium Chloride 1,000 ML IVC SCH (20:30)
[2019-05-17] MEDS ORDERED: *HR* Promethazine 25 MG/ML VIAL IVP PRN (22:14)
[2019-05-17] MEDS ORDERED: traMADol 50 MG TABLET PO PRN (22:15)
[2019-05-17] MEDS ORDERED: Acetaminophen 325 MG TABLET PO PRN (22:15)
[2019-05-17] MEDS ORDERED: Ketorolac 30 MG/ML VIAL IVP PRN (22:15)
[2019-05-17] MEDS ORDERED: Ipratropium/Albuterol Neb 3 ML IH PRN (22:16)
--- NOTE | 2019-05-17 22:48 | Internal Med History&Physical ---
Date of Encounter: 05/17/19 Time of Encounter: 22:47 Internal Medicine - H&P: HPI Chief complaint: diarrhea Admitted From: Home Plans for Post Hospital Care: Home History of present illness: Jay Lyons is a 58-year-old man chronic smoker with metastatic right lung poorly differentiated adenocarcinoma diagnosed in 2017 and underwent concurrent chemoradiation and now is on palliative immunotherapy. He is brought in by his today with complaints of nausea, vomiting and diarrhea that started yesterday afternoon about 3-4 hours after having lunch at [employer]. He says it has been incessant having diarrhea at the same time he is vomiting and he has been unable to keep anything down. He called his oncologist today who recommended that he come to the emergency room for evaluation. His last immun otherapy infusion was 1 month ago and his next dose is scheduled for 2 days from now. His and son who also ate with him did not fall ill. On arrival to the ER he was notably tachycardic and afebrile. He had a diarrheal deposition while in the ER as well. Lab work revealed her leukocyte count of 12.9, sodium 133, potassium 3.3, chloride 96 and creatinine 2.23 from a baseline of 1. CT scan showed mild fluid-filled distention of small bowel without a discrete zone of transition likely representing ileus in the setting of gastroenteritis. He received 500 mLs of fluid in the ER and was referred for admission. Vitals: Reviewed General: Well-developed -[place] man lying in bed in notable discomfort. Skin: Warm and dry. HEENT: Dry mucous membranes. No conjunctivae pallor. Neck: No lymphadenopathy. No JVD. No carotid bruits. No palpable thyroid. Chest: Reduced thoracic expansion. Diminished breath sounds in upper lung sanchez. Heart: Normal S1 & S2; rhythmic. No rubs or murmurs. Abdomen: Mildly distended, soft and non-tender to palpation. No peritoneal reaction. Extremities: No clubbing, cyanosis or edema. No calf tenderness. Normal distal pulses. Neurological: Awake, alert and oriented to person, place and time. No focal deficits. Psych: Affect appropriate. Assessment/Plan 1. Acute gastroenteritis: Appears to stem from an acute ingestion as it commenced only a few hours after having lunch at [employer] restaurant. Given the short timeframe to commencement, it could be a toxin-producing organism. In any case we will get a comprehensive GI panel for evaluation. Given his immunosuppressed condition, will start empiric therapy with ciprofloxacin and metronidazole. 2. Acute kidney injury: Prerenal in etiology secondary to a hypovolemic state from the gastrointestinal fluid losses. We will resuscitate aggressively overnight and recheck BMP in the morning. 3. Electrolyte imbalances: As evidenced by hypochloremia, hyponatremia and h ypokalemia. Repletion will be administered through his fluids. 4. Metastatic lung cancer: Care per oncology. He is on narcotics for cancer- related pain control however advised that we hold off on continued use for now given his ileus state with gastroenteritis as it would be preferable to maintain adequate colonic peristalsis rather than worsening his ileus which could lead to systemic disease and complications. 5. Emphysema: Seen to have bullous changes on chest CT. nebulizer therapy offered as needed. Past Med Surg Social Fam HX - Past Medical History Medical history: cancer, hypertension Additional medical history: Lung cancer, Psychiatric history: no psych history - Past Surgical History Surgical History: no surgical history Additional surgical history: hernia surgery was approximately 15 years ago - Social History Smoking Status: Current some day smoker Smokeless Tobacco Status: No Alcohol use: occasionally Drug use: none - Family History Mother Hx Family Cancer: Yes (possible lung cancer) Internal Medicine - H&P: Meds Menthol [Biofreeze] 118 ml TP TID PRN #118 gel..ml. 10/28/17 [Rx] hydroCHLOROthiazide [Hydrochlorothiazide] 25 mg PO DAILY #30 tablet 12/09/17 [Rx] Lidocaine/Prilocaine [Emla] 1 appl TP DAILY #30 gm 02/04/18 [Rx] Mirtazapine [Remeron] 15 mg PO HS #30 tablet 11/20/18 [Rx] Megestrol Acetate [Megace] 10 ml PO BID #600 udc 12/19/18 [Rx] Benzonatate [Tessalon] 200 mg PO BID PRN 30 Days #60 capsule 01/21/19 [Rx] Gabapentin [Neurontin] 600 mg PO TID #90 tablet 01/21/19 [Rx] Loratadine [Allergy Relief] 10 mg PO DAILY #30 tablet 01/21/19 [Rx] Folic Acid 1 mg PO DAILY #30 tablet 01/22/19 [Rx] Promethazine [Phenergan] 25 mg PO Q6HR PRN #30 tablet 02/03/19 [Rx] Sildenafil Citrate 100 mg PO AD #30 tablet 02/03/19 [Rx] Morphine Sulfate [Arymo ER] 30 mg PO BID 30 Days #60 tab.po.er 02/24/19 [Rx] OxyCODONE Immed Rel [Roxicodone 10 MG] 10 mg PO Q6H PRN 30 Days #120 tab 02/24/19 [Rx] Allergy/AdvReac Type Severity Reaction Status Date / Time dextromethorphan Allergy Dizziness Verified 02/24/19 14:17 [From Dimetapp Cold-Congestion] All Systems PM: A 10-system review of systems was performed and is negative for pertinent findings except as documented above in the HPI. - Constitutional Vitals: Temp Pulse Resp BP Pulse Ox 98.3 F 89 28 129/91 95 05/17/19 16:41 05/17/19 20:24 05/17/19 20:24 05/17/19 20:24 05/17/19 20:24 Exam: . Internal Med - H&P Results - Labs CBC & Chem 7: 05/17/19 17:14 05/17/19 17:14 Labs: Short CBC 05/17/19 Range/Units 17:14 WBC 12.9 H (4.3-11.1) K/mcL Hgb 14.7 (12.9-16.9) g/dL Hct 43.3 (37.5-50.1) % Plt Count 300 (140-400) K/mcL Neutrophils # 9.1 H (1.6-8.9) K/mcL BMP 05/17/19 17:14 Sodium 133 L Potassium 3.3 L Chloride 96 L Carbon Dioxide 23 BUN 28 H Creatinine 2.23 H Glucose 131 H Calcium 10.0 - Impressions ITS Impressions Chest X-Ray 05/17/19 17:29 IMPRESSION: Suggestion of increased opacity within the mid to lower lungs, with pulmonary vascular congestion. Correlate with clinical evidence of developing pulmonary edema. Otherwise, stable appearance of the chest, with chronic findings as described above. D/ / Emanuel Andrade MD / Emanuel Andrade MD Interpreting Provider: Emanuel Andrade MD Abdomen/Pelvis CT 05/17/19 22:13 IMPRESSION: Chest CT: No acute abnormality identified within the lungs. Redemonstration of post treatment changes within the right upper lung, with a chronic pleural fluid collection, and with a chronic calcified lesion. Chronic bony changes within the posterior upper ribs. The esophagus is patulous, with mild diffuse mural thickening. Correlate with clinical evidence of dysphagia and/or esophagitis. Severe bullous emphysema, unchanged. Abdomen pelvis CT: No definite acute abnormality identified. There is mild fluid-filled distention of small bowel, but without a discrete zone of transition. While obstruction is not entirely excluded, this most likely represents ileus, possibly in the setting of gastroenteritis. D/ / Emanuel Andrade MD / Emanuel Andrade MD Interpreting Provider: Emanuel Andrade MD Chest CT 05/17/19 22:13 IMPRESSION: Chest CT: No acute abnormality identified within the lungs. Redemonstration of post treatment changes within the right upper lung, with a chronic pleural fluid collection, and with a chronic calcified lesion. Chronic bony changes within the posterior upper ribs. The esophagus is patulous, with mild diffuse mural thickening. Correlate with clinical evidence of dysphagia and/or esophagitis. Severe bullous emphysema, unchanged. Abdomen pelvis CT: No definite acute abnormality identified. There is mild fluid-filled distention of small bowel, but without a discrete zone of transition. While obstruction is not entirely excluded, this most likely represents ileus, possibly in the setting of gastroenteritis. D/ / Emanuel Andrade MD / Emanuel Andrade MD Interpreting Provider: Emanuel Andrade MD - Time Spent With Patient Total time spent is greater than 50% in coordination of care (as documented) at patient's floor/unit and/or counseling patient:
[2019-05-17 23:19] LABS: Bilirubin,Urine Negative (Negative); Blood,Urine Large (Negative); Clarity,Urine Cloudy (Clear); Color,Urine Yellow (Yellow); Glucose,Urine (UA) Normal (Normal); Ketones,Urine Negative (Negative); Leukocyte Esterase,Urine Negative (Negative); Nitrite,Urine Negative (Negative); PH,Urine 5.5 pH Units (5.0-8.0); Protein,Urine 100 mg/dL (Neg-Trace); Specific Gravity,Urine > 1.030 (1.010-1.025); Urobilinogen,Urine Normal (Normal)
[2019-05-17 23:20] LABS: Bacteria,Urine None Seen per hpf (None-Few); Squamous Epithelial Cell,Urine Many per lpf (None-Few)
[2019-05-17] MEDS: Potassium Chloride 40 MEQ in D5% in 0.9% NACL 1,000 ML IVC SCH (23:22)
[2019-05-17 23:34] LABS: Hyaline Casts,Urine Few per lpf (None-Few)
[2019-05-18] MEDS ORDERED: MetroNIDAZOLE 500 MG/100 ML 500 MG/100 ML BAG IVPB SCH
[2019-05-18 02:42] LABS: Basophils % 0.2 %; Eosinophils % 0.2 %; Hematocrit 41.3 % (37.5-50.1); Hemoglobin 13.9 g/dL (12.9-16.9); Immature Granulocytes % 0.3 % (0-4); Lymphocytes # 2.2 K/mcL (0.6-4.6); Lymphocytes % 18.1 %; Mean Corpuscular HGB Conc 33.7 g/dL (31.6-35.5); Mean Corpuscular Hemoglobin 30.3 pg (28.0-33.3); Mean Platelet Volume 10.1 fL (9.4-12.4); Monocytes # 1.4 K/mcL (0.0-1.3); Monocytes % 11.5 %; Neutrophils # 8.5 K/mcL (1.6-8.9); Platelet Count 285 K/mcL (140-400); Red Blood Count 4.59 M/mcL (4.19-5.50); Red Cell Distribution Width 14.5 % (11.5-14.5); Segmented Neutrophils % 69.7 %; White Blood Count 12.2 K/mcL (4.3-11.1)
[2019-05-18 02:49] LABS: INR 1.2; Prothrombin Time 13.1 Seconds (9.4-12.1)
[2019-05-18 02:52] LABS: Activated Partial Thrombo Time 30.2 Seconds (26.0-36.0)
[2019-05-18 03:01] LABS: Albumin 3.9 g/dL (3.5-5.7); Bilirubin,Indirect 0.4 mg/dL (0.0-1.2); Bilirubin,Total 0.4 mg/dL (0.3-1.0); Calcium 9.1 mg/dL (8.6-10.3); Globulin 4.1 g/dL (2.4-3.5); Potassium 3.2 mEq/L (3.5-5.1)
[2019-05-18 03:07] LABS: Phosphorous 3.3 mg/dL (2.7-4.5)
[2019-05-18 03:10] LABS: Adenovirus F 40/41 PCR Not detected (Not detect); Astrovirus PCR Not detected (Not detect); C.difficile Toxin A/B Gene PCR Not detected (Not detect); Campylobacter by PCR Not detected (Not detect); Cryptosporidium by PCR Not detected (Not detect); Cyclospora cayetanensis PCR Not detected (Not detect); E. coli O157 by PCR Not detected (Not detect); Entamoeba histolytica PCR Not detected (Not detect); Enteroaggregative E.coli(EAEC) Not detected (Not detect); Enteropathogenic E.coli(EPEC) DETECTED (Not detect); Enterotoxigenic E.coli (ETEC) Not detected (Not detect); Giardia lamblia PCR Not detected (Not detect); Norovirus GI/GII PCR Not detected (Not detect); Plesiomonas shigelloides PCR Not detected (Not detect); Rotavirus A PCR Not detected (Not detect); Salmonella PCR Not detected (Not detect); Sapovirus PCR Not detected (Not detect); Shig/EnteroinvasiveE coli EIEC Not detected (Not detect); Shigalike tox-prod E coli STEC Not detected (Not detect); Vibrio PCR Not detected (Not detect); Vibrio cholerae PCR Not detected (Not detect); Yersinia enterocolitica PCR Not detected (Not detect)
--- NOTE | 2019-05-18 06:46 | Event Note ---
Date of Encounter: 05/18/19 Time of Encounter: 06:46 Patient noted to have enteropathogenic Escherichia coli on stool testing. While supportive care with fluid, electrolyte and nutritional management is the mainstay of treatment, given the severity of his diarrheal illness leading to volume, a high frequency of stools per day and being immunocompromised, will advise a 3 day course of azithromycin 500mg daily. He should be transitioned to PO once he can tolerate it. Will discontinue the ciprofloxacin/metronidazole started overnight. HERSON CHEN.
[2019-05-18] MEDS: Ondansetron 4 MG/2 ML VIAL IVP PRN ×2 (08:40→15:49)
[2019-05-18] MEDS: Azithromycin 500 MG in D5% in Water 250 ML IVPB SCH (08:40)
[2019-05-18] MEDS: Potassium Chloride 40 MEQ in D5% in 0.9% NACL 1,000 ML IVC SCH (09:50)
--- NOTE | 2019-05-18 13:28 | Electrocardiograph Report ---
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
--- NOTE | 2019-05-18 14:59 | Internal Med Progress Note ---
Hospitalist Progress Note - Encounter Date of Encounter: 05/18/19 Time of Encounter: 10:30 - Subjective Interval History: Mr. Lyons is a 58-year-old man chronic smoker with metastatic right lung poorly differentiated adenocarcinoma diagnosed in 2017 and underwent concurrent chemoradiation and now is on palliative immunotherapy pt was brought into ER by his with complaints of nausea, vomiting and diarrhea that started yesterday afternoon about 3-4 hours after having lunch at [employer]. CT scan showed mild fluid-filled distention of small bowel without a discrete zone of transition likely representing ileus in the setting of gastroenteritis. He was admitted in the hospital and started him on symptomatic and supportive care. His stool G.I Panel came back as positive for EPEcoli. Pt stated he still has watery diarrhea x 2 bm this morning. - Exam Vitals: Temp Pulse Resp BP Pulse Ox 98.1 F 97 16 145/95 97 05/18/19 11:42 05/18/19 11:42 05/18/19 11:42 05/18/19 11:42 05/18/19 11:42 Exam: Gen: Alert, awake, Oriented to time,place and person Chest: Diminished breath sounds B/L, No wheezing, No crackles, No rales Heart: S1S2+ RRR No murmurs Abd: Soft, NT, Hyper active BS +, No organomegaly Ext: No edema, pulses are palpable, No calf tenderness Neuro : No acute focal neuro deficits noticed Skin: No rash. - Assessment and Plan (1) Diarrhea Current Visit: Yes Status: Acute Assessment and Plan: Stool GI panel came back positive for EPEC E. Coli which is self-limiting disease however due to his immunocompromised state, started him on empirical antibiotic azithromycin continue IV hydration continue symptomatic and supportive care (2) Acute kidney injury Current Visit: Yes Status: Acute Assessment and Plan: Due to dehydration improving continue IV hydration (3) Gastroenteritis Current Visit: Yes Status: Acute Assessment and Plan: care as above (4) Metastatic lung carcinoma Current Visit: No Status: Acute Assessment and Plan: Has chemo port.. Currently getting palliative Immuno therapy He is due for therapy in AM, however with his current infectious diarrhea may need to post pone his therapy for a week or so Informed Heme Onc office. - Time Spent with Patient Total time spent is greater than 50% in coordination of care (as documented) at patient's floor/unit and/or counseling patient: Internal Medicine: Result - Labs CBC & Chem 7: 05/18/19 02:20 05/18/19 02:20 Labs: Short CBC 05/17/19 05/18/19 Range/Units 17:14 02:20 WBC 12.9 H 12.2 H (4.3-11.1) K/mcL Hgb 14.7 13.9 (12.9-16.9) g/dL Hct 43.3 41.3 (37.5-50.1) % Plt Count 300 285 (140-400) K/mcL Neutrophils # 9.1 H 8.5 (1.6-8.9) K/mcL BMP 05/17/19 05/18/19 17:14 02:20 Sodium 133 L 134 L Potassium 3.3 L 3.2 L Chloride 96 L 100 Carbon Dioxide 23 23 BUN 28 H 28 H Creatinine 2.23 H 1.88 H Glucose 131 H 115 H Calcium 10.0 9.1 Liver Function 05/18/19 Range/Units 02:20 Total Bilirubin 0.4 (0.3-1.0) mg/dL Direct Bilirubin 0.0 (0.0-0.2) mg/dL AST 36 (13-39) Units/L ALT 18 (7-52) Units/L Alkaline Phosphatase 63 (34-104) Units/L Albumin 3.9 (3.5-5.7) g/dL Urine 05/17/19 Range/Units 23:06 Urine Color Yellow (Yellow) Urine Clarity Cloudy A (Clear) Urine pH 5.5 (5.0-8.0) pH Units Ur Specific Neville > 1.030 H (1.010-1.025) Urine Protein 100 H (Neg-Trace) mg/dL Urine Glucose (UA) Normal (Normal) mg/dL - ABG Interpretation ABG results: PT/INR, D-dimer PT 13.1 Seconds (9.4-12.1) H 05/18/19 02:20 - Impressions Impressions Chest X-Ray 05/17/19 17:29 IMPRESSION: Suggestion of increased opacity within the mid to lower lungs, with pulmonary vascular congestion. Correlate with clinical evidence of developing pulmonary edema. Otherwise, stable appearance of the chest, with chronic findings as described above. D/ / Emanuel Andrade MD / Emanuel Andrade MD Interpreting Provider: Emanuel Andrade MD Abdomen/Pelvis CT 05/17/19 22:13 IMPRESSION: Chest CT: No acute abnormality identified within the lungs. Redemonstration of post treatment changes within the right upper lung, with a chronic pleural fluid collection, and with a chronic calcified lesion. Chronic bony changes within the posterior upper ribs. The esophagus is patulous, with mild diffuse mural thickening. Correlate with clinical evidence of dysphagia and/or esophagitis. Severe bullous emphysema, unchanged. Abdomen pelvis CT: No definite acute abnormality identified. There is mild fluid-filled distention of small bowel, but without a discrete zone of transition. While obstruction is not entirely excluded, this most likely represents ileus, possibly in the setting of gastroenteritis. D/ / Emanuel Andrade MD / Emanuel Andrade MD Interpreting Provider: Emanuel Andrade MD Chest CT 05/17/19 22:13 IMPRESSION: Chest CT: No acute abnormality identified within the lungs. Redemonstration of post treatment changes within the right upper lung, with a chronic pleural fluid collection, and with a chronic calcified lesion. Chronic bony changes within the posterior upper ribs. The esophagus is patulous, with mild diffuse mural thickening. Correlate with clinical evidence of dysphagia and/or esophagitis. Severe bullous emphysema, unchanged. Abdomen pelvis CT: No definite acute abnormality identified. There is mild fluid-filled distention of small bowel, but without a discrete zone of transition. While obstruction is not entirely excluded, this most likely represents ileus, possibly in the setting of gastroenteritis. D/ / Emanuel Andrade MD / Emanuel Andrade MD Interpreting Provider: Emanuel Andrade MD Consult Discharge Plan - Plan Referrals: NONE,PCP [Primary Care Provider] - (1) Diarrhea Qualifiers: Diarrhea type: infectious Qualified Code(s): A09 - Infectious gastroenteritis and colitis, unspecified (4) Metastatic lung carcinoma Qualifiers: Laterality: right Qualified Code(s): C78.01 - Secondary malignant neoplasm of right lung
[2019-05-18] MEDS ORDERED: Benzonatate 100 MG CAPSULE PO PRN (15:20)
[2019-05-18] MEDS ORDERED: Methyl Salicylate/Menthol 28 GM TUBE TP PRN (15:20)
[2019-05-18] MEDS ORDERED: *HR* LORazepam 2 MG/ML VIAL IVP PRN (16:12)
[2019-05-18] MEDS: *HR* OxyCODONE Immed Rel 5 MG TABLET PO PRN ×2 (16:35→22:53)
[2019-05-18] MEDS: Nicotine 21 MG PATCH.TD24 TD SCH (16:36)
[2019-05-18] MEDS: 0.9 % Sodium Chloride 1,000 ML IVC SCH (16:39)
[2019-05-18] MEDS: Morphine Sulfate ER (12 HR) 30 MG TABLET.ER PO SCH (20:27)
[2019-05-18] MEDS: Gabapentin 300 MG CAPSULE PO SCH (20:27)
[2019-05-18] MEDS: Megestrol Acetate 400 MG/10 ML UDC PO SCH (20:27)
[2019-05-18] MEDS: hydroCHLOROthiazide 25 MG TABLET PO SCH (20:27)
[2019-05-18] MEDS ORDERED: Mirtazapine 15 MG TABLET PO SCH (21:00)
[2019-05-19] MEDS: 0.9 % Sodium Chloride 1,000 ML IVC SCH (03:22)
[2019-05-19 05:21] LABS: Hematocrit 38.4 % (37.5-50.1); Hemoglobin 12.6 g/dL (12.9-16.9); Mean Corpuscular HGB Conc 32.8 g/dL (31.6-35.5); Mean Corpuscular Hemoglobin 30.6 pg (28.0-33.3); Mean Corpuscular Volume 93.2 fL (83.0-100.0); Mean Platelet Volume 9.9 fL (9.4-12.4); Platelet Count 249 K/mcL (140-400); Red Blood Count 4.12 M/mcL (4.19-5.50); Red Cell Distribution Width 14.4 % (11.5-14.5); White Blood Count 9.7 K/mcL (4.3-11.1)
[2019-05-19 05:43] LABS: BUN/Creatinine Ratio 11 (6-26); Blood Urea Nitrogen 13 mg/dL (6-20); Calcium 8.6 mg/dL (8.6-10.3); Carbon Dioxide 20 mEq/L (23-29); Chloride 108 mEq/L (98-107); Glucose 100 mg/dL (70-105); Osmolality,Calculated 284 (280-300); Phosphorous 2.6 mg/dL (2.7-4.5); Potassium 3.9 mEq/L (3.5-5.1); Sodium 137 mEq/L (136-145); eGFR For African Americans > 60 (> 60); eGFR For Non-African Americans > 60 (> 60)
[2019-05-19] MEDS ORDERED: Loratadine 10 MG TABLET PO SCH (09:00)
[2019-05-19] MEDS ORDERED: Folic Acid 1 MG TABLET PO SCH (09:00)
[2019-05-19] MEDS: Megestrol Acetate 400 MG/10 ML UDC PO SCH (10:09)
[2019-05-19] MEDS: hydroCHLOROthiazide 25 MG TABLET PO SCH (10:15)
[2019-05-19] MEDS: Gabapentin 300 MG CAPSULE PO SCH (10:15)
[2019-05-19] MEDS: Morphine Sulfate ER (12 HR) 30 MG TABLET.ER PO SCH (10:16)
[2019-05-19] MEDS: Azithromycin 500 MG in D5% in Water 250 ML IVPB SCH (10:16)
[2019-05-19] MEDS: Nicotine 21 MG PATCH.TD24 TD SCH (10:17)
[2019-05-19 11:05] VITALS: BP 164/120
[2019-05-19] MEDS: *HR* OxyCODONE Immed Rel 5 MG TABLET PO PRN (11:42)
--- NOTE | 2019-05-19 11:57 | Discharge Summary ---
- NOTES TO OUTPATIENT PROVIDER Notes to Outpatient Provider: f/u with PCP in one week. f/u with Heme Onc as scheduled. Please quit smoking. Date of Encounter: 05/19/19 Time of Encounter: 11:55 - Discharge Diagnosis (1) Diarrhea Priority: Primary Status: Acute Qualifiers: Diarrhea type: infectious Qualified Code(s): A09 - Infectious gastroenter itis and colitis, unspecified (2) Acute kidney injury Priority: Primary Status: Acute (3) Gastroenteritis Priority: Primary Status: Acute (4) Metastatic lung carcinoma Priority: Secondary Status: Acute Qualifiers: Laterality: right Qualified Code(s): C78.01 - Secondary malignant neoplasm of right lung Hospital course: Mr. Lyons is a 58-year-old man chronic smoker with metastatic right lung poorly differentiated adenocarcinoma diagnosed in 2017 and underwent concurrent chemoradiation and now is on palliative immunotherapy pt was brought into ER by his with complaints of nausea, vomiting and diarrhea that started yesterday afternoon about 3-4 hours after having lunch at [employer]. CT scan showed mild fluid-filled distention of small bowel without a discrete zone of transition likely representing ileus in the setting of gastroenteritis. He was admitted in the hospital and started him on symptomatic and supportive care. His stool G.I Panel came back as positive for EPEcoli, which is self- limiting disease. However due to his immunocompromised state, started him on empirical antibiotic azithromycin. Today his diarrhea improved today, denied any more nausea and tolerating PO intake well. His ONEL also improved to baseline with IV hydration. So will d/c him home in stable condition today. - Time Spent with Patient Total time spent providing and/or coordinating discharge services: - Discharge Medications Prescriptions: New Nicotine Patch [Nicoderm] 21 mg TD DAILY #30 patch.td24 Azithromycin [Zithromax Tri-Yasmany] 500 mg PO DAILY #2 tablet Continued Menthol [Biofreeze] 118 ml TP TID PRN #118 gel..ml. PRN Reason: Pain Lidocaine/Prilocaine [Emla] 1 appl TP DAILY #30 gm Mirtazapine [Remeron] 15 mg PO HS #30 tablet Megestrol Acetate [Megace] 10 ml PO BID #600 udc Loratadine [Allergy Relief] 10 mg PO DAILY #30 tablet Gabapentin [Neurontin] 600 mg PO TID #90 tablet Benzonatate [Tessalon] 200 mg PO BID PRN 30 Days #60 capsule PRN Reason: Cough Folic Acid 1 mg PO DAILY #30 tablet Sildenafil Citrate 100 mg PO AD #30 tablet Promethazine [Phenergan] 25 mg PO Q6HR PRN #30 tablet PRN Reason: Nausea Morphine Sulfate [Arymo ER] 30 mg PO BID 30 Days #60 tab.po.er OxyCODONE Immed Rel [Roxicodone 10 MG] 10 mg PO Q6H PRN 30 Days #120 tab PRN Reason: Pain Home Medications: Menthol [Biofreeze] 118 ml TP TID PRN #118 gel..ml. 10/28/17 [Rx] Lidocaine/Prilocaine [Emla] 1 appl TP DAILY #30 gm 02/04/18 [Rx] Mirtazapine [Remeron] 15 mg PO HS #30 tablet 11/20/18 [Rx] Megestrol Acetate [Megace] 10 ml PO BID #600 udc 12/19/18 [Rx] Benzonatate [Tessalon] 200 mg PO BID PRN 30 Days #60 capsule 01/21/19 [Rx] Gabapentin [Neurontin] 600 mg PO TID #90 tablet 01/21/19 [Rx] Loratadine [Allergy Relief] 10 mg PO DAILY #30 tablet 01/21/19 [Rx] Folic Acid 1 mg PO DAILY #30 tablet 01/22/19 [Rx] Promethazine [Phenergan] 25 mg PO Q6HR PRN #30 tablet 02/03/19 [Rx] Sildenafil Citrate 100 mg PO AD #30 tablet 02/03/19 [Rx] Morphine Sulfate [Arymo ER] 30 mg PO BID 30 Days #60 tab.po.er 02/24/19 [Rx] OxyCODONE Immed Rel [Roxicodone 10 MG] 10 mg PO Q6H PRN 30 Days #120 tab 02/24/19 [Rx] Azithromycin [Zithromax Tri-Yasmany] 500 mg PO DAILY #2 tablet 05/19/19 [Rx] Nicotine Patch [Nicoderm] 21 mg TD DAILY #30 patch.td24 05/19/19 [Rx] Allergies/Adverse Reactions: Allergy/AdvReac Type Severity Reaction Status Date / Time dextromethorphan AdvReac Dizziness Verified 05/18/19 14:13 [From Dimetapp Cold-Congestion] Date of admission: 05/17/19 22:00 Primary care physician: PCP NONE - Constitutional Vitals: Temp Pulse Resp BP Pulse Ox 98.0 F 97 16 164/120 100 05/19/19 11:03 05/19/19 11:03 05/19/19 11:03 05/19/19 11:03 05/19/19 11:03 General appearance: Present: cooperative, A&O X 3, no acute distress, answers questions appropriately Exam: Gen: Alert, awake, Oriented to time,place and person Chest: Diminished breath sounds B/L, No wheezing, No crackles, No rales Heart: S1S2+ RRR No murmurs Abd: Soft, NT, BS +, No organomegaly Ext: No edema, pulses are palpable, No calf tenderness Neuro : No acute focal neuro deficits noticed Skin: No rash. - Patient Status Disposition: Home, Self-Care Condition: Good Overall status at discharge: patient is back to baseline - Discharge Instructions Follow Up With: NONE,PCP [Primary Care Provider] - - Diet and Activity Activity: increase activity as tolerated Diet: low salt diet
== END 2019-05-19 13:09 | disposition home or self-care (01) ==
LOC: 3BNU 16:36 → EMEROOARM 16:36 → SUATTDRO 22:00 → 3BNU 22:41
PROVIDERS: ADMIT Internal Medicine; ATTEND Family Medicine